=== PATIENT | female | born 1970 | race Hispanic/Latino ===

== ENCOUNTER 2017-07-26 09:45 | Outpatient (CLI) | payer OTHER ==
--- NOTE | 2017-07-26 11:14 | XRay Report ---
Bilateral knees: Bilateral knee pain. Imaging of the right knee demonstrates [id number] narrowing of the medial compartment with periarticular bony plug duration. The knee appears relatively well aligned. The articular surfaces are still smooth and. There is mild superior and inferior spurs at patella attachments. There is no swelling or effusion identified. Lateral imaging of the left knee is not optimally positioned however there is no significant narrowing of the joint spaces. The articular surfaces are smooth and the knee is aligned. No swelling and no effusion identified. The bones are well-mineralized bilaterally. Impressions: Severe degenerative medial compartment changes of the right knee. No significant findings in the left knee.
== END 2017-07-26 09:46 | disposition home or self-care (01) ==
LOC: XRAY 09:45
PROVIDERS: ATTEND Internal Medicine
DX: M17.11 Unilateral primary osteoarthritis, right knee (principal); M94.8X6 Other specified disorders of cartilage, lower leg; I10 Essential (primary) hypertension; F41.9 Anxiety disorder, unspecified; E05.90 Thyrotoxicosis, unspecified without thyrotoxic crisis or storm; M77.52 Other enthesopathy of left foot and ankle; M77.51 Other enthesopathy of right foot and ankle